=== PATIENT | female | born 1935 | race Caucasian/White ===

== ENCOUNTER → 2016-09-23 | Outpatient (CLI) | payer OTHER ==
[~2016-09-23] MED LIST: ADVAIR 2501 DISK W/D PO; AMLODIPINE-BEN1 EAC4 PO; BENICAR20 MG PO; COMBIVENT INH14.7 GM INH; COUMADIN PO; ENBREL50 MG/ML; EVISTA60 M1 PO; FAMVIR500 MG PO; FOLIC ACID PO; FOSAMAX70 MG PO; HYDROCHLOROTH12.5 M1 PO; HYDROCODON-ACE1 EAC5 PO; IPRATR-ALBUTEROL3 ML INH; K-DUR10 MEQ PO; KLOR-CON PO; LOTREL 5/20 MG1 CAP PO; METHOTREXATE PO; NEBULIZER; NEXIUM; NEXIUM PO; OXYGEN; PROAIR; PROAIR HFA8.5 GM INH; SPIRIVA; SPIRIVA18 MCG INH; VITAMIN C60 MG PO
--- NOTE | ~2016-09-23 | CR63 ---
[facility]. [facility] A Service of [facility] & [facility] RADIOLOGY TEXT RESULTS PATIENT: HENRY RAMIREZ LOCATION: [facility] : 37 UNIT #: [id number] AGE: [address]: Amber JarrettP SEX: F ORDER DR: [id number] [place] [id number] O MR#: [id number] Acc #: [id number] NAME: HENRY RAMIREZ : 1935 SEX: F STUDY DATE/TIME: 09/23/2016 9:35 UNIT: [facility] ROOM: STUDY DESCRIPTION: CR Chest 2 View Attending Physician: Amber Jarrett A.P.R.N. Referring Physician: Amber Jarrett A.P.R.N. Ordering Physician: Amber Jarrett A.P.R.N. Primary Care Physician: Amber Jarrett A.P.R.N. MEDICAL IMAGING REPORT This report is preliminary unless electronic signature is present. EXAM PA and lateral chest INDICATION Shortness of breath for 5 years worse the last 2-3 months. COMPARISON 05/31/2014. FINDINGS There is no acute infiltrate. Heart size stable. Tortuous aorta with atherosclerotic calcifications. Visualized osseous structures are unremarkable. IMPRESSION No active disease. Dictated by... Judson Luciano M.D. THIS IS AN ELECTRONICALLY VERIFIED REPORT Judson Luciano M.D. at 09/23/2016 4:47 PM MILI/keith TD: 09/23/2016 10:27 JOB #: [id number] MEDICAL IMAGING REPORT Page 1 of 1
== END | disposition home or self-care (01) ==
LOC: SRAD 09:24
DX: R05 Cough (principal)
CPT/HCPCS: 71020

== ENCOUNTER 2017-01-20 10:33 | Emergency (ER) | payer OTHER ==
[~2017-01-20] VITALS: Ht 162.6 cm; Wt 68.1 kg
[~2017-01-20 10:33] MED LIST changes: -AMLODIPINE-BEN1 EAC4 PO; -VITAMIN C60 MG PO
[2017-01-20 11:25] LABS: BASOPHIL# 0.1 X10e3 (0-0.3); BASOPHIL% 0.7 % (0-2.5); EOSINOPHIL# 0.1 X10e3 (0-0.7); EOSINOPHIL% 1.3 % (0.0-7.0); HEMATOCRIT 39.5 % (35.0-45.0); HEMOGLOBIN 13.2 gm/dL (12.0-16.0); LYMPHOCYTE# 1.8 X10e3 (1.0-3.5); LYMPHOCYTE% 22.1 % (17.0-45.0); MEAN CELL VOLUME 89.5 FL (83-96); MEAN CORPUSCULAR HEMOGLOBIN 29.9 PG (28-34); MEAN CORPUSCULAR HGB CONC 33.5 g/dL (30-36); MEAN PLATELET VOLUME 8.6 FL (6.5-11.5); MONOCYTE# 0.7 X10e3 (0-1.0); MONOCYTE% 8.3 % (3.0-12.0); NEUTROPHIL# 5.5 X10e3 (1.5-7.1); NEUTROPHIL% 67.6 % (40-75); PLATELET COUNT 235 X10e3 (140-420); RED BLOOD COUNT 4.42 X10e (3.90-5.30); RED CELL DISTRIBUTION WIDTH 13.6 % (11.0-15.5); WHITE BLOOD COUNT 8.2 X10e3 (4.0-10.5)
[2017-01-20] MEDS ORDERED: AMLODIPINE-BEN1 EAC4 PO (11:31)
[2017-01-20 11:39] LABS: DIFF IND NO
[2017-01-20 11:47] LABS: PARTIAL THROMBOPLASTIN TIME 24.3 SECONDS (23.5-31.3); PROTHROMBIN TIME (PATIENT) 10.6 SECONDS (10.0-11.7)
[2017-01-20 12:10] LABS: URINE SOURCE CLEAN CATCH
[2017-01-20 12:10] LABS: ALKALINE PHOSPHATASE 52 U/L (32-92); ALT (SGPT) 14 U/L (10-40); AST (SGOT) 18 U/L (10-42); BILIRUBIN,TOTAL 0.3 mg/dL (0.2-2.0); BLOOD UREA NITROGEN 11 mg/dL (9-23); CALCIUM SERUM 9.2 mg/dL (8.4-10.2); CARBON DIOXIDE 28 mmol/L (22-31); CHLORIDE 101 mmol/L (100-111); GLOM FILT RATE Estimated 53.2 mL/min (>60); GLUCOSE FASTING 91 mg/dL (70-110); LIPASE 32 U/L (22-51); POTASSIUM 3.3 mmol/L (3.5-5.1); PROTEIN TOTAL SERUM 7.4 g/dL (6.0-8.3); SODIUM 139 mmol/L (135-145)
[2017-01-20 12:15] LABS: URINE APPEARANCE CLEAR; URINE BILIRUBIN NEG (NEG); URINE BLOOD NEG (NEG); URINE COLOR YELLOW; URINE GLUCOSE NEG (NEG); URINE KETONE NEG (NEG); URINE LEUKOCYTE ESTERASE NEG (NEG); URINE NITRATE NEG (NEG); URINE PROTEIN NEG (NEG); URINE SPECIFIC GRAVITY 1.006 (1.003-1.035); URINE UROBILINOGEN 0.2 MG/DL (NEG)
[2017-01-20 12:17] LABS: CULTURE INDICATED? NO
[2017-01-20 12:18] LABS: BILIRUBIN, DIRECT <0.1 mg/dL (0.0-0.2); BILIRUBIN,INDIRECT 0.2 mg/dL (0.0-0.9)
[2017-02-24] MEDS ORDERED: PROAIR HFA8.5 GM INH (14:15)
[2017-02-24] MEDS ORDERED: SPIRIVA18 MCG INH (14:16)
[2017-02-24] MEDS ORDERED: VITAMIN C60 MG PO (14:17)
== END 2017-01-20 13:02 | disposition home or self-care (01) ==
LOC: CED 10:33
PROVIDERS: Emergency Medicine
DX: R10.13 Epigastric pain (principal); R19.5 Other fecal abnormalities; R11.2 Nausea with vomiting, unspecified; I10 Essential (primary) hypertension; J44.9 Chronic obstructive pulmonary disease, unspecified; Z98.890 Other specified postprocedural states; Z79.899 Other long term (current) drug therapy; Z88.0 Allergy status to penicillin; Z88.5 Allergy status to narcotic agent; Z88.8 Allergy status to other drugs, medicaments and biological substances
CPT/HCPCS: 36415; 80048; 80076; 81003; 83690; 85025; 85610; 85730; 99284

== ENCOUNTER 2017-02-02 11:49 | Emergency (ER) | payer OTHER ==
[~2017-02-02] VITALS: Ht 162.6 cm; Wt 63.0 kg
--- NOTE | ~2017-02-02 | CT4 ---
[facility] A Service of [facility] & [facility] RADIOLOGY TEXT RESULTS PATIENT: HENRY RAMIREZ LOCATION: [facility] : 37 UNIT #: [id number] AGE: [address]: Gilberto Phan MD SEX: F ORDER DR: [id number] [facility] [address] [place], [place] [address] [id number] MR#: [id number] Acc #: [id number] NAME: HENRY RAMIREZ : 1935 SEX: F STUDY DATE/TIME: 02/02/2017 13:23 UNIT: [facility] ROOM: STUDY DESCRIPTION: CT Abd and Pelv Wo Cont Attending Physician: Gilberto Phan M.D. Ordering Physician: Ralph Harper D.O. Primary Care Physician: Amber Jarrett A.P.R.N. MEDICAL IMAGING REPORT This report is preliminary unless electronic signature is present EXAM CT abdomen and pelvis without contrast, 02/02/2017 1323 hours HISTORY 82-year-old woman complaining of right flank pain since 01/29/2017. History of cervical cancer. COMPARISON 05/26/2005 TECHNIQUE Helical noncontrasted images were obtained from the lung bases through the pubic symphysis without oral or intravenous contrast. Sagittal and coronal reconstructions were performed. Total exam DLP 612 mGy-cm. This CT exam was performed with one or more of the following radiation dose reduction techniques: Automatic exposure control, adjustment of mA and/or kV according to patient size, and iterative reconstruction. FINDINGS Images through the lung bases demonstrate linear bibasilar densities consistent with fibrotic scarring. There is very mild bronchiectasis, right greater than left lower lobe. There is no mucous plugging. Images through the abdomen without contrast demonstrate a normal appearance to the liver, spleen, pancreas and bile ducts. There are multiple gallstones in the gallbladder, but no gallbladder wall thickening. The adrenal glands are normal. Right kidney is normal in appearance, with no mass or stone. There is a tiny hyperdense cyst in the anteromedial upper pole. There is no ureterectasis or ureteral calculus. There are right-sided retroperitoneal calcifications abutting the psoas muscle which are likely phleboliths [facility] A Service of [facility] & [facility] RADIOLOGY TEXT RESULTS PATIENT: HENRY RAMIREZ [id number] 37 UNIT #: [id number] AGE: [address]: Gilberto Phan MD SEX: F ORDER DR: related to the right ovarian vein. These are not seen on the 2005 study but do not appear acute. Left kidney demonstrates an exophytic cyst from the medial upper pole measuring up to 3.5 cm and only 4 Hounsfield units, likely a simple cyst. This has increased in size from 2005, where it measured 2 cm. There is a low-density cortical lesion in the posterior cortex of the mid left kidney measuring 1 cm and 1 Hounsfield unit, also likely a cyst. This was very tiny on the prior exam. There is a nonobstructing stone in the lower-pole left kidney measuring 4 mm. This was a punctate stone on the prior exam. There is an exophytic cyst from the lateral lower-pole left kidney measuring 1.2 cm and only 2 Hounsfield units, likely a cyst. This is also increased in size from 2005. There is no left-sided pelvicaliectasis, ureterectasis or ureteral calculus. The bladder appears normal. There is a small hiatal hernia. The stomach is otherwise normal. There is no small bowel distension or small bowel wall thickening. The appendix is normal. The colon demonstrates scattered colonic diverticula in the right colon, left colon with more numerous diverticula in the sigmoid colon. There is no wall thickening or inflammation. Images through the pelvis demonstrate no adnexal mass or free fluid. IMPRESSION 1. There is a nonobstructing stone in the lower-pole left kidney measuring 4 mm. No intrarenal stones are seen on the right. There is no ureterectasis or ureteral calculus. Patient has right-sided retroperitoneal calcifications abutting the psoas muscle, which I believe are phleboliths related to the right ovarian vein. These are new from 05/06/2005 but separate from the right ureter. 2. There is bronchiectasis ziieo-ixmkxka-omcb-left lung base with subpleural linear scarring. No acute pulmonary densities. 3. Diffuse atherosclerotic calcifications without aneurysm. 4. Gallstones in the gallbladder of the cholesterol type. There is no gallbladder wall thickening. 5. Scattered colonic diverticulosis most prominent in the sigmoid colon. No CT evidence of diverticulitis. 6. No evidence of appendicitis. Dictated by... Odilia Sin M.D. THIS IS AN ELECTRONICALLY VERIFIED REPORT Odilia Sin M.D. at 02/03/2017 9:22 AM STONE/telly TD: 02/02/2017 16:10 [facility] A Service of [facility] RADIOLOGY TEXT RESULTS PATIENT: HENRY RAMIREZ [id number] 37 UNIT #: [id number] AGE: [address]: Gilberto Phan MD SEX: F ORDER DR: C[facility]ST[facility] #: [id number] MEDICAL IMAGING REPORT Page 1 of 1 COPY
--- NOTE | ~2017-02-02 | US67 ---
[facility] A Service of [facility] RADIOLOGY TEXT RESULTS PATIENT: HENRY RAMIREZ LOCATION: [facility] : 37 UNIT #: [id number] AGE: [address]: Gilberto Phan MD SEX: F ORDER DR: [id number] [facility] [address] [address] [id number] E MR#: [id number] Acc #: [id number] NAME: HENRY RAMIREZ : 1935 SEX: F STUDY DATE/TIME: 02/02/2017 15:13 UNIT: [facility] ROOM: STUDY DESCRIPTION: Gallbladder Attending Physician: Gilberto Phan M.D. Ordering Physician: Ralph Harper D.O. Primary Care Physician: Amber Jarrett A.P.R.N. MEDICAL IMAGING REPORT This report is preliminary unless electronic signature is present EXAM Right upper quadrant ultrasound The date is 02/02/2017 HISTORY Abdominal pain for 5 days. No abdominal surgery, diabetes, myocardial infarction CVA. Hypertension. No hyperlipidemia. FINDINGS CT x-ray real-time ultrasonography of the right upper quadrant performed. Comparison to a CT examination earlier on same date. The pancreas is unremarkable. The liver measures 14.5 cm in craniocaudal extent. Appears normal in size, contour and echotexture. The gallbladder contains multiple shadowing gallstones. There is no compelling evidence of gallbladder dilatation. No pericholecystic fluid. CT examination earlier today showed no evidence of pericholecystic inflammatory change. On the current examination, the gallbladder wall measures between 3 and 5 mm in thickness. I would favor that this is a reflection of contracted state of gallbladder and/or underlying nutritional status. There is no pericholecystic fluid seen. There is no intrahepatic ductal dilatation. The boiler coverer has measured the extrahepatic duct as up to 9 mm in diameter. This is similar to prior CT examination. No ductal obstructing process is seen. I would favor that this is physiologic in nature and related to patient's age. Please correlate with laboratory data and clinical presentation. The right kidney shows no hydronephrosis or nephrolithiasis. No perinephric fluid collection. Right kidney measures about 8.5 cm in greatest length. There is an upper pole cyst measuring 1.23 cm x 1.26 cm x 1.35 cm. IMPRESSION 1. Pancreas and liver are normal in appearance. 2. Multiple shadowing nonobstructing gallstones. There is no indication of gallbladder dilatation or pericholecystic fluid. The gallbladder wall does appear thickened on some images measuring between 3 and [address] [facility] A Service of [facility] RADIOLOGY TEXT RESULTS PATIENT: HENRY RAMIREZ LOCATION: [facility] : 37 UNIT #: [id number] AGE: [address]: Gilberto Phan MD SEX: F ORDER DR: mm in thickness. I would favor that this is a reflection of the contracted state of the gallbladder and/or the patient's underlying metabolic status. Please note that CT examination performed earlier on the same date showed no indication of a gallbladder inflammatory change. If there is a clinical concern for acute cholecystitis, further gallbladder assessment with radionuclide biliary scan might be considered. 3. The extrahepatic common bile duct is prominent measuring up to 9 mm in diameter with no obstructing process seen. Similar appearance on earlier CT examination. Probably physiologic in nature. Correlate with clinical presentation and laboratory data. 4. No acute right renal abnormality. Small upper pole cyst. Dictated by... Moises Tam M.D. THIS IS AN ELECTRONICALLY VERIFIED REPORT Moises Tam M.D. at 02/03/2017 6:19 PM SUNNY/pedro TD: 02/02/2017 19:56 JOB #: [id number] MEDICAL IMAGING REPORT Page 1 of 1 COPY
[~2017-02-02 11:49] MED LIST changes: +AMLODIPINE-BEN1 EAC4 PO
[2017-02-02 13:15] LABS: BASOPHIL# 0.1 X10e3 (0-0.3); BASOPHIL% 0.6 % (0-2.5); EOSINOPHIL# 0.1 X10e3 (0-0.7); EOSINOPHIL% 0.8 % (0.0-7.0); HEMATOCRIT 39.3 % (35.0-45.0); HEMOGLOBIN 12.8 gm/dL (12.0-16.0); LYMPHOCYTE# 1.8 X10e3 (1.0-3.5); LYMPHOCYTE% 20.2 % (17.0-45.0); MEAN CELL VOLUME 89.2 FL (83-96); MEAN CORPUSCULAR HEMOGLOBIN 29.2 PG (28-34); MEAN CORPUSCULAR HGB CONC 32.7 g/dL (30-36); MEAN PLATELET VOLUME 8.9 FL (6.5-11.5); MONOCYTE# 0.7 X10e3 (0-1.0); MONOCYTE% 7.7 % (3.0-12.0); NEUTROPHIL# 6.2 X10e3 (1.5-7.1); NEUTROPHIL% 70.7 % (40-75); PLATELET COUNT 256 X10e3 (140-420); RED CELL DISTRIBUTION WIDTH 13.5 % (11.0-15.5); WHITE BLOOD COUNT 8.7 X10e3 (4.0-10.5)
[2017-02-02 13:17] LABS: DIFF IND NO
[2017-02-02 13:44] LABS: ALBUMIN SERUM 4.2 g/dL (3.5-5.0); ALKALINE PHOSPHATASE 52 U/L (32-92); ALT (SGPT) 14 U/L (10-40); AST (SGOT) 20 U/L (10-42); BILIRUBIN,TOTAL 0.7 mg/dL (0.2-2.0); BLOOD UREA NITROGEN 13 mg/dL (9-23); CALCIUM SERUM 9.5 mg/dL (8.4-10.2); CARBON DIOXIDE 27 mmol/L (22-31); CHLORIDE 101 mmol/L (100-111); GLOM FILT RATE Estimated 53.2 mL/min (>60); GLUCOSE FASTING 107 mg/dL (70-110); LIPASE 30 U/L (22-51); POTASSIUM 3.1 mmol/L (3.5-5.1); PROTEIN TOTAL SERUM 7.5 g/dL (6.0-8.3); SODIUM 140 mmol/L (135-145)
[2017-02-02 13:45] LABS: BILIRUBIN, DIRECT <0.1 mg/dL (0.0-0.2); BILIRUBIN,INDIRECT 0.6 mg/dL (0.0-0.9)
[2017-02-02 14:36] LABS: URINE SOURCE CLEAN CATCH
[2017-02-02 14:48] LABS: URINE APPEARANCE CLEAR; URINE BILIRUBIN NEG (NEG); URINE BLOOD NEG (NEG); URINE COLOR YELLOW; URINE GLUCOSE NEG (NEG); URINE KETONE NEG (NEG); URINE LEUKOCYTE ESTERASE NEG (NEG); URINE NITRATE NEG (NEG); URINE PROTEIN NEG (NEG); URINE SPECIFIC GRAVITY 1.007 (1.003-1.035); URINE UROBILINOGEN 0.2 MG/DL (NEG)
[2017-02-02 14:55] LABS: CULTURE INDICATED? NO
[2017-02-24] MEDS ORDERED: PROAIR HFA8.5 GM INH (14:15)
[2017-02-24] MEDS ORDERED: SPIRIVA18 MCG INH (14:16)
[2017-02-24] MEDS ORDERED: VITAMIN C60 MG PO (14:17)
== END 2017-02-02 17:21 | disposition home or self-care (01) ==
LOC: CED 11:49
PROVIDERS: Emergency Medicine
DX: R10.9 Unspecified abdominal pain (principal); R07.81 Pleurodynia; I10 Essential (primary) hypertension; Z98.51 Tubal ligation status; Z79.899 Other long term (current) drug therapy
CPT/HCPCS: 36415; 74176; 76705; 80048; 80076; 81003; 83690; 85025; 96374; 96375; 99284; J2270; J2405